=== PATIENT | male | born 1965 | race Caucasian/White ===

== ENCOUNTER 2020-09-14 10:28 | Emergency (ER) | payer OTHER, SELFPAY ==
[2020-09-14] VITALS (18 sets, daily range): BP systolic 132–152; BP diastolic 86–111; PULSE 69–91; RESP 11–28; TEMP 36.9; O2SAT 95–100
--- NOTE | ~2020-09-14 | XR_ITS ---
XR elbow LT min 3V DATE: 09/14/2020 11:34 INDICATION: Left elbow pain, swelling, erythema TECHNIQUE: 4 views COMPARISON: None FINDINGS: There is spurring of the coronoid process and olecranon process of the proximal ulna, consi stent with osteoarthritic change. No fracture or dislocation, periosteal reaction or bone destruction or joint effusion is evident. IMPRESSION: Spurring of the coronoid and olecranon processes of the proximal ulna consistent with ost eoarthritis Reviewed, dictated and finalized at location B. GENERATOR IMPRESSION: Spurring of the coronoid and olecranon processes of the proximal ul na consistent with osteoarthritis
--- NOTE | 2020-09-14 11:14 | ED.EXTPRO ---
HPI - Extremity Problem General Chief complaint: Extremity Problem,Nontraumatic Stated complaint: elbow pain & swelling Time Seen by Provider: 09/14/20 10:51 Source: patient Mode of arrival: ambulatory Limitations: no limitations History of Present Illness HPI Narrative: This is a 55-year-old male that presents the emergency department for left elbow pain x4 days. Associated with swelling and redness. Was seen by his primary today and sent here for further evaluation. Denies fever. Related Data Allergies Allergy/AdvReac Type Severity Reaction Status Date / Time No Known Allergies Allergy Verified 09/14/20 10:53 Review of Systems Review of Systems: Narrative: CONSTITUTIONAL: Denies fever SKIN: Denies rash MUSCULOSKELETAL: Reports joint pain, and myalgia. NEUROLOGIC: Denies numbness All systems reviewed & are unremarkable except as noted in HPI and below PMFSH Past Medical History Medical History (Updated 09/14/20 @ 13:41 by Hali Meek PA-C) No active medical problems Family History Family History Mother Diabetes mellitus Father Family history of congestive heart failure Other Family history of blood dyscrasia Family history of malignant neoplasm Hypertension Social History Social History Smoking status: Never smoker Alcohol intake: current Exam Narrative: Exam Narrative: GENERAL: Well-appearing, obese, and in no acute distress. HEAD: Normocephalic, atraumatic. EYES: EOMI. CHEST: Clear to auscultation. No respiratory distress. No wheezes rales or rhonchi HEART: Regular rate and rhythm. No murmur heard. Normal peripheral pulses. EXTREMITIES: Normal range of motion, except mildly decreased active ROM in the left elbow due to pain. Mild to moderate edema to the left elbow with moderate surrounding redness. Normal radial pulses SKIN: Warm, dry, no rash. NEURO: No focal deficits. Alert and oriented x3. PSYCH: Normal mood and affect Course Consultations Consultation #1: Spoke with Dr. Llanos about patient work-up. Patient will be given dose of antibiotics IV in the ED and then sent home on oral antibiotics. Date: 09/14/20 Time: 13:40 Vital Signs Vital signs: Vital Signs Temperature 98.5 F 09/14/20 10:48 Pulse Rate 91 09/14/20 10:48 Respiratory Rate 20 09/14/20 10:48 Blood Pressure 135/86 09/14/20 10:48 Pulse Oximetry 97 09/14/20 10:48 Temperature 98.5 F 09/14/20 10:48 Pulse Rate 73 09/14/20 13:31 Respiratory Rate 20 09/14/20 13:31 Blood Pressure 144/89 H 09/14/20 13:31 Pulse Oximetry 98 09/14/20 13:31 MDM - Extremity (Nontraumatic) MDM Narrative Medical decision making narrative: Patient presents to the emergency department for left elbow pain and swelling x4 days. He is afebrile and nontoxic-appearing. Does have good range of motion in the elbow. Mild to moderate redness and swelling noted about the posterior elbow. CBC is without leukocytosis. ESR and CRP are elevated. Uric acid is normal. Left elbow x-ray shows osteoarthritis, no acute bony abnormalities or joint effusion. Spoke with Dr. Llanos about patient work-up. Patient will be given dose of antibiotics IV in the ED and then sent home on oral antibiotics. He will follow-up in clinic. Patient was given warnings to return to the ER Lab Data Attestation: I reviewed the patient's lab results. Result diagrams: 09/14/20 11:22 09/14/20 11:22 Labs: Lab Results 09/14/20 09/14/20 Range/Units 11:22 11:22 WBC 7.1 (4.5-10.0) K/mm3 RBC 4.30 L (4.6-6.20) M/mm3 Hgb 13.1 L (14.0-18.0) g/dL Hct 39.3 L (42.0-52.0) % MCV 91.4 (80-100) fl MCH 30.5 (26-34) pg MCHC 33.3 (32-36) g/dl RDW 14.5 (11.5-14.5) % Plt Count 175 (150-375) k/mm3 MPV 10.8 H (7.4-10.4) fl Immature Gran % (Auto) 0.3 (0-0.5) % Neut % (Auto) 69.0 (45.5
[2020-09-14 11:29] LABS: Basophils Percent Auto 0.4 % (0.2-1.2); Eosinophils Absolute Auto 0.1 K/mm3 (0-0.3); Eosinophils Percent Auto 0.8 % (0-4.4); Hematocrit 39.3 % (42.0-52.0); Hemoglobin 13.1 g/dL (14.0-18.0); Immature Granulocyte Absolute 0.02 K/mm3 (0.00-0.031); Immature Granulocyte Percent A 0.3 % (0-0.5); Lymphocytes Absolute Auto 1.43 K/mm3 (0.9-3.2); Mean Corpuscular HGB Conc 33.3 g/dl (32-36); Mean Corpuscular Hemoglobin 30.5 pg (26-34); Mean Corpuscular Volume 91.4 fl (80-100); Mean Platelet Volume 10.8 fl (7.4-10.4); Monocytes Absolute Auto 0.7 K/mm3 (0.1-0.6); Monocytes Percent Auto 9.5 % (2.6-8.5); Neutrophils Absolute Auto 4.9 K/mm3 (1.3-6.7); Platelet Count Result 175 k/mm3 (150-375); Red Cell Distribution Width 14.5 % (11.5-14.5); White Blood Count 7.1 K/mm3 (4.5-10.0)
[2020-09-14 11:50] LABS: Anion Gap 5 mmol/L (8-16); Blood Urea Nitrogen 16 mg/dL (9-20); CRP 6.9 mg/dL (<1.0); Calcium 8.7 mg/dL (8.4-10.2); Carbon Dioxide 30 mmol/L (22-30); Chloride 104 mmol/L (98-107); Estimated CRCL calculation 97 ml/min; Estimated Glomerular Filt Rate > 60; Glucose 104 mg/dL (75-110); Potassium 4.2 mmol/L (3.4-5.0); Sodium 139 mmol/L (137-145); Uric Acid 7.2 mg/dL (3.5-8.5)
[2020-09-14 12:08] LABS: Erythrocyte Sedimentation Rate 33 mm/hr (0-20)
--- NOTE | 2020-09-20 19:26 | PC.NURSE ---
LATE ENTRY This note is being entered to document information to the patient's record. The following information was omitted on [09/14/2020], Ceftriaxone stopped at 1433 by [RT].
== END 2020-09-14 14:22 | disposition home or self-care (01) ==
PROVIDERS: Physician Assistant; Emergency Provider Emergency Medicine; PCP Family Medicine
DX: M71.122 Other infective bursitis, left elbow (principal)
CPT/HCPCS: 36415; 73080; 80048; 84550; 85025; 85652; 86140; 96365; 99284; J0696

== ENCOUNTER → 2022-08-26 12:40 | Outpatient (CLI) | payer OTHER, SELFPAY ==
--- NOTE | ~2022-08-26 | XR_ITS ---
XR ankle RT min 3V DATE: 08/26/2022 13:07 INDICATION: Medial pain TECHNIQUE: 4 views COMPARISON: None FINDINGS: There is osteoarthritis at the tibiotalar and talocalcaneal joints. No recent fracture or d islocation of the ankle or disruption of the ankle mortise. No periosteal reaction or bone destructio n. IMPRESSION: Osteoarthritis Reviewed, dictated and finalized at location A. ENT SERVICES DIRECTOR IMPRESSION: Osteoarthritis
== END ==
PROVIDERS: PCP Family Medicine; Visit Provider Family Medicine
DX: M19.071 Primary osteoarthritis, right ankle and foot (principal)
CPT/HCPCS: 73610

== ENCOUNTER → 2023-02-24 16:31 | Outpatient (CLI) | payer OTHER, SELFPAY ==
--- NOTE | ~2023-02-24 | XR_ITS ---
Left Hand Technique: PA and lateral views were obtained. Clinical History: Pain Findings: No acute fracture or dislocation is seen. Osseous alignment is anatomic. Joint spaces are p reserved. Soft tissues are unremarkable. Impression: Unremarkable left hand. Reviewed, dictated and finalized at location M. Impression: Unremarkable left hand.
--- NOTE | ~2023-02-24 | XR_ITS ---
EXAM: XR elbow LT min 3V DATE: 02/24/2023 17:15 HISTORY: M25.522 - Pain in left elbow . COMPARISON: 09/14/2020. FINDINGS: Normal mineralization. No fracture or dislocation. No lytic or blastic lesion. Moderate el bow osteoarthritis. No erosion or periosteal change. Slight displacement of the anterior fat pad and minimal visualization of the posterior fat pad likely indicating small volume joint fluid. Soft tissu e swelling over the olecranon. IMPRESSION: Moderate elbow osteoarthritis. Small elbow joint effusion. Olecranon bursitis. Reviewed, dictated and finalized at location K. IMPRESSION: Moderate elbow osteoarthritis. Small elbow joint effusion. Olecrano n bursitis.
--- NOTE | ~2023-02-24 | XR_ITS ---
Right Hand Technique: PA, oblique, and lateral views were obtained. Clinical History: Pain Findings: No acute fracture or dislocation is seen. Osseous alignment is anatomic. Joint spaces are p reserved. Soft tissues are unremarkable. Impression: Unremarkable right hand. Reviewed, dictated and finalized at location M. Impression: Unremarkable right hand.
== END ==
PROVIDERS: PCP Nurse Practitioner Family; Visit Provider Nurse Practitioner Family
DX: M79.644 Pain in right finger(s) (principal); M19.022 Primary osteoarthritis, left elbow
CPT/HCPCS: 73080; 73120; 73130

== ENCOUNTER 2023-07-17 14:29 | Outpatient (CLI) | payer OTHER, SELFPAY ==
[2023-07-17 18:32] LABS: Basophils Percent Auto 0.6 % (0.2-1.2); Eosinophils Absolute Auto 0.1 K/mm3 (0-0.3); Eosinophils Percent Auto 1.1 % (0-4.4); Hematocrit 43.5 % (42.0-52.0); Hemoglobin 14.4 g/dL (14.0-18.0); Immature Granulocyte Absolute 0.01 K/mm3 (0.00-0.031); Immature Granulocyte Percent A 0.2 % (0-0.5); Lymphocytes Absolute Auto 1.48 K/mm3 (0.9-3.2); Mean Corpuscular HGB Conc 33.1 g/dl (32-36); Mean Corpuscular Hemoglobin 30.1 pg (26-34); Mean Corpuscular Volume 90.8 fl (80-100); Monocytes Absolute Auto 0.5 K/mm3 (0.1-0.6); Monocytes Percent Auto 7.9 % (2.6-8.5); Neutrophils Absolute Auto 4.1 K/mm3 (1.3-6.7); Neutrophils Percent Auto 66.2 % (45.5-73.1); Platelet Count Result 195 k/mm3 (150-375); Red Blood Count 4.79 M/mm3 (4.6-6.20); Red Cell Distribution Width 14.5 % (11.5-14.5); White Blood Count 6.2 K/mm3 (4.5-10.0)
[2023-07-17 18:58] LABS: Alanine Aminotransferase 33 U/L (6-50); Albumin Level 4.6 g/dL (3.5-5.1); Alkaline Phosphatase 66 U/L (38-126); Anion Gap 11 mmol/L (8-16); Aspartate Amino Transferase 39 U/L (17-59); Bilirubin,Total 0.7 mg/dL (0.2-1.3); Blood Urea Nitrogen 17 mg/dL (9-20); Calcium 9.4 mg/dL (8.4-10.2); Carbon Dioxide 27 mmol/L (22-30); Chloride 104 mmol/L (98-107); Estimated Glomerular Filt Rate > 60; Glucose 135 mg/dL (65-110); Potassium 3.9 mmol/L (3.4-5.0); Sodium 142 mmol/L (137-145)
[2023-07-17 19:19] LABS: Hemoglobin A1C 5.8 % (<5.7)
[2023-07-21 09:58] LABS: Vitamin D 1,25 (OH)2 Total 35 pg/mL (18-72); Vitamin D2 1,25 (OH)2 <8 pg/mL; Vitamin D3 1,25 (OH)2 35 pg/mL
[2023-07-21 22:06] LABS: PSA, Free 0.18 ng/mL; PSA, Total 0.5 ng/mL (<=4.0)
== END 2023-07-17 14:30 | disposition home or self-care (01) ==
LOC: ANHGOSHLAB 14:30
PROVIDERS: PCP Nurse Practitioner Family; Visit Provider Nurse Practitioner Family
DX: Z00.00 Encounter for general adult medical examination without abnormal findings (principal); R20.0 Anesthesia of skin; R20.2 Paresthesia of skin; E55.9 Vitamin D deficiency, unspecified; Z12.5 Encounter for screening for malignant neoplasm of prostate
CPT/HCPCS: 36415; 80053; 82607; 82652; 83036; 84153; 84154; 84443; 85025

== ENCOUNTER → 2023-07-17 15:53 | Outpatient (CLI) | payer OTHER, SELFPAY ==
--- NOTE | ~2023-07-17 | XR_ITS ---
EXAMINATION: XR hand RT min 3V DATE: 07/17/2023 16:16 INDICATION: Anesthesia of skin. TECHNIQUE: 3 views of right hand were obtained. COMPARISON: Radiographs 02/24/2023 FINDINGS: Bone alignment is normal. No fracture. There is mild osteoarthritis of first carpometacarpa l joint. There is degenerative cystic change in proximal lunate. There is mild osteoarthritis of seco nd through fifth metacarpophalangeal joints and all of the interphalangeal joints. There is a small l oose body in the radiocarpal compartment dorsally. IMPRESSION: 1. Polyarticular osteoarthritis. Reviewed, dictated and finalized at location E. ING ATTENDANT
--- NOTE | ~2023-07-17 | XR_ITS ---
EXAMINATION: XR_CERV2-3V_CR DATE: 07/17/2023 16:16 INDICATION: Anesthesia of skin. TECHNIQUE: 5 views of cervical spine were obtained. COMPARISON: cervical spine radiographs 06/22/2017 FINDINGS: There is 9 degrees levocurvature of cervicothoracic spine. There is anterior fusion from C2 to C6 with interbody devices at C3-C4 and C4-C5. There is fusion of the spinous processes at C2-C3 a nd C5-C6. There is moderately decreased disc height at C6-C7. There is multilevel mild facet joint hy pertrophy. There is mild central canal stenosis at C3-C4, C5-C6, and C6-C7. No prevertebral soft tiss ue swelling. IMPRESSION: 1. Moderate cervical spondylosis. 2. Anterior fusion from C2 to C6. Reviewed, dictated and finalized at location E. ER V GROOVE
== END ==
PROVIDERS: PCP Nurse Practitioner Family; Visit Provider Nurse Practitioner Family
DX: R20.0 Anesthesia of skin (principal); R20.2 Paresthesia of skin; M47.892 Other spondylosis, cervical region; Z98.1 Arthrodesis status; M19.041 Primary osteoarthritis, right hand
CPT/HCPCS: 72040; 73130

== ENCOUNTER 2023-12-16 18:51 | Emergency (ER) | payer OTHER, SELFPAY ==
[2023-12-16] VITALS (7 sets, daily range): BP systolic 144–170; BP diastolic 90–103; PULSE 78–83; RESP 18; TEMP 36.2; O2SAT 94–100
--- NOTE | ~2023-12-16 | XR_ITS ---
XR chest 1V portable 12/16/2023 22:29 Indication: Left shoulder pain Procedure: AP portable chest Comparison: No prior studies for comparison. Findings: Cardiomegaly. No focal air space disease, pulmonary edema, pleural effusion or suspected pn eumothorax. Impression: 1: No acute cardiopulmonary disease. Reviewed, dictated and finalized at location A. Impression: 1: No acute cardiopulmonary disease.
--- NOTE | ~2023-12-16 | CT_ITS ---
CT ANGIOGRAM NECK AND HEAD History: Left arm weakness. Technique: Axial noncontrast imaging of the brain was performed. Serial spiral axial images through t he head and neck were than obtained during arterial phase IV injection of 100 cc of Omnipaque 350. 3- D postprocessing and MIP images were then reconstructed on the remote workstation. Dose reduction gisella hnique was used on this scan by utilizing automated exposure control and iterative reconstruction gisella hnique. The dose-length product (DLP) was 1974.62 mGy-cm. CTA neck findings: Bilateral vertebral arteries are patent. Bilateral common carotid, internal carot id, and external carotid arteries are patent. No large vessel occlusion. No stenosis or aneurysm. Int ernal carotid arteries are somewhat tortuous. The proximal right internal carotid artery demonstrates 0% stenosis relative to the normal distal artery lumen diameter. The proximal left internal carotid artery demonstrates 0% stenosis relative to the normal distal artery lumen diameter. CTA head findings: Distal vertebral arteries, basilar artery, and posterior cerebral arteries are pat ent. Distal internal carotid arteries, middle cerebral arteries, and anterior cerebral arteries are p atent. There is probable aplasia versus marked hypoplasia of the A1 segment of the right anterior cer ebral artery, typically considered normal variant. Probable infundibulum at the anterior communicatin g artery on the left side rather than aneurysm. No large vessel occlusion. No stenosis. Axial noncontrast imaging of the brain is unremarkable. No acute infarct, intracranial hemorrhage or mass lesion identified. Greatest dimension preserved. No mass effect or midline shift. Ventricles and subarachnoid spaces are unremarkable. Paranasal sinuses and mastoid air cells are clear. Impression: No significant abnormality identified. Probable infundibulum at the left anterior communicating arter y rather than aneurysm. Reviewed, dictated and finalized at location . Impression: No significant abnormality identified. Probable infundibulum at the left anteri or communicating artery rather than aneurysm.
--- NOTE | 2023-12-16 22:16 | ECG_ITS ---
SEE SCANNED COPY FOR CONFIRMED REPORT MTDD
[2023-12-16 23:01] LABS: Basophils Percent Auto 0.5 % (0.2-1.2); Eosinophils Absolute Auto 0.1 K/mm3 (0-0.3); Eosinophils Percent Auto 0.7 % (0-4.4); Hematocrit 41.7 % (42.0-52.0); Hemoglobin 13.8 g/dL (14.0-18.0); Immature Granulocyte Absolute 0.01 K/mm3 (0.00-0.031); Immature Granulocyte Percent A 0.1 % (0-0.5); Lymphocytes Absolute Auto 2.04 K/mm3 (0.9-3.2); Lymphocytes Percent Auto 26.7 % (18.3-44.2); Mean Corpuscular HGB Conc 33.1 g/dl (32-36); Mean Corpuscular Hemoglobin 30.1 pg (26-34); Mean Platelet Volume 10.7 fl (7.4-10.4); Monocytes Absolute Auto 0.7 K/mm3 (0.1-0.6); Monocytes Percent Auto 9.2 % (2.6-8.5); Neutrophils Absolute Auto 4.8 K/mm3 (1.3-6.7); Neutrophils Percent Auto 62.8 % (45.5-73.1); Platelet Count Result 205 k/mm3 (150-375); Red Blood Count 4.58 M/mm3 (4.6-6.20); Red Cell Distribution Width 14.4 % (11.5-14.5); White Blood Count 7.6 K/mm3 (4.5-10.0)
[2023-12-16 23:08] LABS: Lactic Acid Reflex 0.9 mmol/L (0.7-2.0)
[2023-12-16 23:10] LABS: Appearance Urine Clear (Clear); Bilirubin Urine Negative (Negative); Blood Urine Negative (Negative); Color Urine Yellow (Yellow); Glucose Urine UA Negative (Negative); Ketones Urine Negative (Negative); Leukocyte Esterase Ur Negative LEU/UL (Negative); Nitrate Urine Negative (Negative); Protein Urine Negative (Negative); Urobilinogen Urine 0.2 mg/dL (<2.0); pH Urine 5.5 (5.0-9.0)
[2023-12-16 23:13] LABS: Add Urine Microscopic? NO
[2023-12-16 23:14] LABS: Alanine Aminotransferase 33 U/L (6-50); Albumin Level 4.6 g/dL (3.5-5.1); Alkaline Phosphatase 62 U/L (38-126); Anion Gap 7 mmol/L (4-12); Aspartate Amino Transferase 28 U/L (17-59); Bilirubin,Total 0.6 mg/dL (0.2-1.3); Blood Urea Nitrogen 22 mg/dL (9-20); Calcium 9.3 mg/dL (8.4-10.2); Carbon Dioxide 25 mmol/L (22-30); Chloride 106 mmol/L (98-107); Estimated CRCL calculation 92 ml/min; Estimated Glomerular Filt Rate > 60; Glucose 101 mg/dL (65-110); Sodium 138 mmol/L (137-145)
[2023-12-16 23:21] LABS: Troponin I < 0.012 ng/mL (0.000-0.034)
[2023-12-17] VITALS (8 sets, daily range): BP systolic 144–166; BP diastolic 79–102; PULSE 68–72; RESP 14–17; O2SAT 94–98
[2023-12-17 02:15] LABS: Troponin I < 0.012 ng/mL (0.000-0.034)
--- NOTE | 2023-12-17 03:36 | ED.GENADULT ---
HPI - General Adult General Chief complaint: Extremity Injury, Upper Stated complaint: left arm pain Time Seen by Provider: 12/16/23 22:06 History of Present Illness HPI narrative: patient is a 58-year-old gentleman presents emergency department with chief complaint of left arm pain shooting from the elbow down to the hand patient states he has a numbness sensation that goes from the ulnar aspect of the arm to the 4th and 5th digit patient states that he has prior history of cervical surgery patient also reports had some tingling his right upper arm for some time. The patient reports he was seen in urgent care and sent to the emergency department to evaluate for possible stroke the patient is outside of the window for thrombolytics standpoint Related Data Allergies Allergy/AdvReac Type Severity Reaction Status Date / Time No Known Allergies Allergy Verified 02/24/23 15:44 Review of Systems Review of Systems: A 10 system review of systems was completed on the patient and is negative except for what is stated in the HPI. Nursing and ancillary documentation was reviewed. [facility] Past Medical History Medical History Osteoarthritis Pain, joint, ankle and foot Surgical History Surgical History History of fusion of cervical spine (~2009) History of hand surgery (~02/2016) Left hand deep laceration repair History of right inguinal hernia repair (~08/2016) Family History Family History Mother Diabetes mellitus Father Family history of congestive heart failure Other Family history of blood dyscrasia Family history of malignant neoplasm Hypertension Social History Social History Smoking status: Never smoker Alcohol intake: current Substance use: never Substance use type: does not use Lack of Transportation: No Lack of Food: Never True Current Housing: I Have Housing Difficulty Paying Gas/Electric Bills: No Difficulty Paying for Meds: No Currently Unemployed: No Education: High School Diploma/GED Difficulty w/ Childcare or Family Care: No Gender identity (if verbalized by the patient): Male Spiritual care concerns: No Exam Narrative: GENERAL: Well-appearing, well-nourished, and in no acute distress. HEAD: Normocephalic, atraumatic. EYES: PERRLA and EOMI. ENT: Nares clear, no rhinorrhea or epistaxis. Mucous membranes moist. NECK: Supple. CHEST: Clear to auscultation. No respiratory distress. HEART: Regular rate and rhythm. No murmur heard. Normal peripheral pulses. ABDOMEN: Soft, nontender, nondistended, normal active bowel sounds. EXTREMITIES: Normal range of motion decreased sensation 4th 5th digit of the left hand. Patient has full range of motion there is tenderness left elbow. No edema. SKIN: Warm, dry, no rash. NEURO: No focal deficits. Alert and oriented x3. PSYCH: Normal mood and affect. Course Vital Signs Vital signs: Vital Signs Temperature 36.2 C L 12/16/23 18:56 Pulse Rate 83 12/16/23 18:56 Respiratory Rate 18 12/16/23 18:56 Blood Pressure 170/97 H 12/16/23 18:56 Pulse Oximetry 95 12/16/23 18:56 Temperature 36.2 C L 12/16/23 18:56 Pulse Rate 70 12/17/23 01:46 Respiratory Rate 16 12/17/23 01:46 Blood Pressure 165/102 H 12/17/23 01:46 Pulse Oximetry 98 12/17/23 01:46 Medical Decision Making MDM Narrative Medical decision making narrative: differential diagnosis includes CVA, cervical radiculopathy. 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
[2023-12-17] MEDS: dexAMETHasone SOD PHOS INJ 10 MG/ML 1 ML VIAL 8 MG IV PUSH (03:49)
== END 2023-12-17 04:06 | disposition home or self-care (01) ==
PROVIDERS: Emergency Provider Emergency Medicine; PCP Nurse Practitioner Family
DX: M54.12 Radiculopathy, cervical region (principal); M19.90 Unspecified osteoarthritis, unspecified site; Z98.1 Arthrodesis status
CPT/HCPCS: 36415; 70496; 70498; 71045; 80053; 81003; 83605; 83735; 84484; 85025; 93005; 96374; 99284; J1100; Q9967

== ENCOUNTER 2024-11-24 09:53 | Outpatient (CLI) | payer OTHER, SELFPAY ==
--- NOTE | ~2024-11-24 | US_ITS ---
EXAMINATION: US venous doppler LE RT DATE: 11/24/2024 10:39 INDICATION: Right lower limb pain TECHNIQUE: Grayscale ultrasound images without and with compression and Doppler ultrasound images of the right lower extremity veins were obtained. COMPARISON: None. FINDINGS: The visualized portions of right common femoral vein, profunda (deep) femoral vein, femoral vein, pop liteal vein, peroneal trunk, posterior tibial veins, peroneal veins, gastrocnemius vein and greater s aphenous vein outflow are patent. There is a 4.7 x 3.4 x 0.8 cm nonloculated appearing deep subcutane ous fluid collection extending along the superficial fascia of the likely proximal gastrocnemius musc le at the popliteal fossa. No internal vascular flow on color Doppler and without surrounding hyperem ia to suggest infection but which could be seen in reactive fluid versus hematoma related to muscle s train or potentially extravasated fluid from a ruptured Blankenship's cyst. IMPRESSION: 1. No deep venous thrombosis in the right lower limb. 2. Nonspecific 4.7 x 3.4 x 0.8 cm nonloculated fluid collection extending along the superficial muscu lar fascia of the likely proximal gastrocnemius muscle most likely relate to either a muscle strain o r ruptured Blankenship's cyst. Reviewed, dictated and finalized at location A. IMPRESSION: 1. No deep venous thrombosis in the right lower limb. 2. Nonspecific 4.7 x 3.4 x 0.8 cm nonloculated fluid collection extending along the superficial muscular fascia of the likely proximal gastrocnemius muscle mo st likely relate to either a muscle strain or ruptured Blankenship's cyst.
--- OUTSIDE RECORDS SUMMARY | 2024-11-24 10:33 | XMS_ITS | Clinical Summary ---
Author Organization [facility] Address [address] [place] [address] Care Team Providers Care Sound Printer Name Role Phone Unavailable Primary Care Provider Unavailabl e Source Comments [facility],non-owned Affiliates and Associated Physician Practices is amultiple site organization consisting of ambulatory clinics and hospital sitesin [place], [place], [place] and [place]. This disclosure is being madepursuant to the Care Everywhere program and may not contain all information available regarding this patient. Last updated 18.[facility] Allergies No known active allergies Medications * Be aware that medications may not be up to date on this document. Alwaysverify current medications with the patient. Medication Sig Dispensed Refills Start Date End Date Status meloxicam (Mobic) 15 MG tablet 12/14/2022 Active Aspirin-Acetaminophen -Caffeine (EXCEDRIN EXTRA STRENGTH PO) Excedrin Extra Strength Active Active Problems Problem Noted Date Diagnosed Date Arthritis 12/24/2022 Osteoarthritis of left ankle 11/12/2022 Swelling of ankle joint 07/28/2018 Sprain of deltoid ligament of ankle 07/28/2018 Foot pain 07/28/2018 Ankle pain 07/28/2018 Immunizations Name Administration Dates Next Due TD (ADULT), 5 LF TETANUS TOXOID, ADSORBED, PF Social History Tobacco Use Types Packs/Day Years Used Date Smoking Tobacco: Never Passive Smoke Exposure: Never Smokeless Tobacco: Never Tobacco Cessation:Counseling Given: Not Answered Alcohol Use Standard Drinks/Week Comments Yes 0 (1 standard drink = 0.6 oz pur e alcohol) rare PHQ-2 Answer Date Recorded Patient Health Questionnaire-2 Score 0 07/14/2024 Sex and Gender Information Value Date Recorded Sex Assigned at Not on file Gender Identity Not on file Sexual Orientation Not on file Last Filed Vital Signs Vital Sign Reading Time Taken Comments Blood Pressure 146/95 07/14/2024 3:06 PM GEOSCIENCE PROFESSOR Pulse 96 07/14/2024 3:00 PM GEOSCIENCE PROFESSOR Temperature 36.7 C (98 F) 07/14/2024 3:00 PM GEOSCIENCE PROFESSOR Respiratory Rate 18 07/14/2024 3:00 PM GEOSCIENCE PROFESSOR Oxygen Saturation 98% 07/14/2024 3:00 PM GEOSCIENCE PROFESSOR Inhaled Oxygen Concentration - - Weight 111.1 kg (245 lb) 12/24/2022 2:35 PM CDT Height 180.3 cm (5' 11 ) 12/24/2022 2:35 PM CDT Body Mass Index 34.17 12/24/2022 2:35 PM CDT Plan of Treatment Health Maintenance Due Date Last Done Comments COLOGUARD (AGES 45-75) - COL ON CA SCREENING 1965 COLON MONITORING 1965 COLONOSCOPY - COLON CA SCREENING 1965 CT COLONOGRAPHY - COLON CA SCREENING 1965 Colorectal Cancer Screening 1965 FIT - COLON CA SCREENING 1965 FLEX SIG - COLON CA SCREENING 1965 LIPID TESTING 1965 HIV SCREENING 02/15/1980 HEPATITIS C SCREENING 02/10/1983 HEPATITIS B VACCINE (1 of 3 - 19+ 3-dose series) 02/15/1984 PNEUMOCOCCAL VACCINE 50+ (1 of 1 - PCV) 2015 ZOSTER VACCINE (1 of 2) 2015 COVID-19 VACCINE (2023-2 5 season) 2024 08/28/2021, 12/23/2020, 12/02/2020 INFLUENZA VACCINE (#1) 2024 DEPRESSION SCREENING 09/07/2024 07/14/2024 DTAP/TDAP/TD VACCINES (2 - T d or Tdap) 03/21/2031 03/21/2021 HIB VACCINE Aged Out No longer eligi ble based on patient's age to complete this topic HPV VACCINE Aged Out No longer eligi ble based on patient's age to complete this topic MENINGOCOCCAL (Group B) VACCINE SHARED DECISION-MAKING Aged Out No longer eligible based on patient's age to complete this topic MENINGOCOCCAL GROUPS A/C/Y/W VACCINE Aged Out No longer eligible b ased on patient's age to complete this topic
--- OUTSIDE RECORDS SUMMARY | 2024-11-24 10:33 | XMS_ITS | Data Portability ---
Author Organization [place] [facility] Admin Address [address] [place] [address] Assessment Encounter Date Assessment Date Assessment LastModified by Organization Details LastModified Time 07/28/2018 07/28/2018 x-rays were reviewed and I discussed my findings with the patient today. X-rays reveal no obvious acute bony abnormalities. He does have significant degenerative changes noted to the right ankle. His exam is most consistent with a sprain to the deltoid ligament and an exacerbation to underlying arthritis to his right ankle. He may also be experiencing peroneal tendinitis. Given the amount of soft tissue swelling noted on exam today, he will be placed into a bulky Walker splint for immobilization. He will remain nonweightbearin g. The patient would like to obtain a knee scooter, a prescription was provided today. He declines crutches. He was instructed he cannot drive with the splint on, patient verbalizes understanding. He will have someone pick him up from the clinic today. Conservative treatment options were discussed to include resting, icing and elevating his right leg and ankle. He can continue oral Aleve and/or Tylenol as needed for pain. I would like the patient to follow up with the foot and ankle team in 7-10 days for clinical recheck. Patient was instructed to report to the clinic sooner should symptoms worsen. Opportunity for questions and answers was provided. The patient in agreement with today's plan. [email or web address] Not available 07/28/2018 14:24:19 Plan of Treatment Reminders Order Date Submit Date Provider Last Modified By Organization Details Last Modified Time Details Appointments None recorded. Lab None recorded. Referral physical therapist referral 2017 018 [email or web address] Not available 8 11:50:03 Procedures None recorded. Surgeries None recorded. Imaging XR, foot 2017 018 aidee nicholson [facility] [[id number]], [address], [place], [address], 8 14:07:17 XR, ankle 2017 018 aidee nicholosn [facility] [497], [address], [place], [address], 8 14:07:17 Medication Orders None recorded. Patient TargetsNo targets recorded. Patient Instructions Encounter Date Encounter Id Patient Instructions Last Modified By Organization Details Last Modified Time 08/04/2018 [id number] ankle sprain: care instructions [email or web address] Not available 08/05/2018 13:14:29 Reason for Referral Physical Therapist Referral for Ankle pain Referring Physician: Misael Zamudio, Orthopedic Surgery, Encounter Date: 08/04/2018 Results Created Date Observation Date Name Description Value Unit Range Abnormal Flag Note LastModifiedBy Organization Detail LastModifiedTime 07/28/20 18 07/28/2018 XR, ankle [facility] eUID=[id number] .2.608 [id number] 8 INTERFACE [facility] [497] [address], [place], [address], 07/28/2018 12:56:24 07/28/20 18 07/28/2018 XR, foot [facility] eUID=1 .[id number] .2.608 [id number] 8 INTERFACE [facility] [497] [address] [place], [address], 07/28/2018 13:26:07 Result Notes None recorded. Problems Name Problem SNOMED Code Status Onset Date Resolution Date Notes Provider Name and Address Organization Details Recorded Time Sprain of deltoid ligament of ankle 52422241 Active MARÍA Ness - [facility] 8 14:24:35 Foot pain 33624810 Active 018 Katlyn lawson, [place] - [facility] 8 14:24:36 Ankle pain 312008212 Active 018 Katlyn lawson, [place] - [facility] 8 14:24:37 Swelling of ankle joint 048279908 Active 018 Katlyn Campbell null, [place] - [facility] 8 14:24:47 Problem Notes None recorded. Procedures Surgical History Date Name Laterality Status Provider Name and Address Organization Details Recorded Time 8 W-Breg Ankle/Foot Brace completed Laura Ni [place] - [facility] 08/04/2018 11:39:23 8 W-Short Leg Splint (12436) completed Razia Montesmeghan [place] - [facility] 07/28/2018 13:41:24 7 Other completed Lillydain BurrellSimone [place] - [facility] 07/28/2018 12:41:37 6 Hand Surgery completed Lilly Nichols [place] - [facility] 07/28/2018 12:41:37 0 Spine completed Lilly Nichols [place] - [facility] 07/28/2018 12:41:37 Imaging Results Imaging Date Name Status LastModified by Organiz ation Details LastModified Time 07/28/2018 XR, ankle completed INTERFACE [facility] [4 97] [address], [place], [address], 07/28/2018 12:56:24 07/28/2018 XR, foot completed INTERFACE [facility] [4 97] [address], [place], [address], 07/28/2018 13:26:07 Procedure Notes None recorded. Medical Equipment None Reported. Allergies No known drug allergies Medications Name Sig Start Date Stop Date Status Note LastModified by Organization Details LastModified Time Excedrin Extra Strength active Not Available Not Available Not Available Vitals Date Recorded Body height Body mass index (BMI) Body weight Provider Name and Address Organization Details Last Updated DateTime 07/28/2018 182.88 cm 31.2 kg/m2 563465.25 g Lilly Burrellelin [place] - [facility] 07/28/2018 12:51:33 Date Recorded Body height Body mass index (BMI) Body weight Provider Name and Address Organization Details Last Updated DateTime 08/04/2018 182.88 cm 31.2 kg/m2 689588.25 g Misael Zamudio PA-C [address] [place], [address], [place] - [facility] 08/04/2018 15:27:27 Social History Question Answer Notes LastModified by Organizat ion Details LastModified Time Do You Have An Advance Directive? No Information not available 07/28/2018 What Is Your Level Of Alcohol Consumption? Occasional Information not available 07/28/2018 How Much Tobacco Do You Chew? None Information not available 07/28/2018 Are You Currently Employed? Yes Information not available 07/28/2018 Which Illicit Or Recreational Drugs Have You Used? None Information not available 07/28/2018 Who Is Your Employer? [employer] Information not available 07/28/2018 Which Of Your Hands Is Dominant? Right Information not available 07/28/2018 Live Alone Or With Others? With Others Information not available 07/28/2018 Marital Status Informatio n not available 07/28/2018 Do You Have A Medical Power Of [place]roudman? No Information not available 07/28/2018 What Was The Date Of Your Most Recent Tobacco Screening? 07/28/2018 Information not available 03/31/2019 How Much Tobacco Do You Smoke? No Information not available 07/28/2018 Sex: Unknown Functional Status None recorded. Mental Status None recorded. Family History Relationship Description Onset Age of this Age Resolved Age Notes LastModified by Organization Details LastModified Time Father Blood coagulation disorder [email or web address] Not available 2017 12:36:32 Father Osteoporosis [email or web address] Not availab le 07/28/2018 12:36:32 Father Rheumatoid arthritis [email or web address] Not available 2017 12:36:33 Mother Diabetes mellitus [email or web address] Not available 2017 12:36:58 Mother Heart disease [email or web address] Not available 2017 12:36:58 Mother History of carcinoma [email or web address] Not available 2017 12:36:58 Mother Rheumatoid arthritis [email or web address] Not available 2017 12:36:58 Medical History Condition Response Heart Problems N HIV or AIDS N None N Osteoarthritis Y Leukemia N Irregular Heartbeat N Parkinson's Disease N MRSA N Migraines Y COPD N Lung Disease N Depression N Blood Clots N Previous Pain Management Treatment: Y Lupus/SLE N Bipolar N Sickle Cell Anemia N Anemia N Poor Circulation N Congestive Heart Failure N Stomach Ulcers Y Diabetes N Anxiety Disorder N Hepatitis/Liver Disease N Bleeding Disorder N Seizures/Epilepsy N Thyroid Problems/Goiter N Tuberculosis N Other: N Chest Pain/Angina N Cancer N Asthma N Chronic Back Pain N Sleep apnea N Numbness/Tingling N Stroke/TIA N GERD/Reflux N High Cholesterol N Pulmonary Embolis N GI Issues Specify: N Rheumatoid Arthritis N Fibromyalgia N Hypertension N Osteoporosis N Kidney Disease N Past Encounters Encounter ID Performer Location Encounter Start Date Encounter Closed Date Diagnosis/Indication Diagnosis SNOMED-CT Code Diagnosis ICD10 Code Diagnosis Note [id number] Katlyn FisherO-Lianet carlos [address] [place] [address] 07/28/2018 12:14:56 07/28/2018 14:07:16 Ankle pain 784047184 M25.571 Foot pain 45975560 M79.6 71 Sprain of deltoid ligament of ankle 47106223 S93.421A Swelling o f ankle joint 581222031 M25.885 [id number] Misael Zamudio PA-C [facility] [address] [place] [address] 08/04/2018 11:15:40 08/04/2018 11:47:41 Ankle pain 419747956 M25.571 Previous radiograph s reviewed from walk-in clinic. He has scarificat ion was cephalad to the syndesmosi s and chronic type degenerati ve changes throughout the ankle and hindfoot but I cannot appreciate anything acute. Working diagnosis ankle sprain superimpos ed on ankle hindfoot arthritis. Plan is for a walking boot. Medical necessity for protective weightbear ing. We'll start typical ankle rehabilita tion and see him back in 4 weeks for hopeful final check. Questions invited and answered to his satisfacti on. Sprain of ankle 67333975 S93.491A Health Concerns Section Related Observation LastModified by Organization Detai ls LastModified Time None Recorded Concern Status LastModified by Organization Details LastModified Time None Recorded Advance Directives Directive N: Payers Encounter Date Sequence Insurance Name Policy Number Policy Stoll Covered Member ID Stoll Member ID Guarantor Name 07/28/2018 1 *SELF PAY* Dayday Ly 08/04/2018 1 *SELF PAY* Dayday Ly Notes Date Note Type Note Provider Name and Address Organization Details Recorded Time 07/28/2018 text/html Mr. Ly is a 53 year old male who [facility] of right ankle pain. He states 1 week ago on 07/21/18 he was at a [employer] exhibit and jumped off of the ship. He denies any pain at that time. He states over the past week he has had on and off pain. He reports his current pain as a 6 out of 10. He describes pain as constant, stabbing and wakes him from his sleep. He states standing, lying and walking exacerbates his symptoms. Has complaints of swelling, bruising and numbness and tingling noted to the right foot and ankle. He has tried ice and Aleve with minimal pain relief. The patient has recently relocated to the [facility], [place]. 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 He is able to ambulate at this time without any assistive devices needed. He states he has had previous injuries to his right ankle. Katlyn lawson, [facility] 07/28/2018 14:27:45 08/04/2018 text/html 53-year-old male presents from access. Working diagnosis deltoid ligament sprain with questionable bone pathology prior radiographic workup. He was placed in Walker splint. Subjectively doing well. 2 weeks out from injury. Current pain level 3/10. Misael Zamudio PA-C [address], [place], [address], [facility] - [facility] 08/05/2018 13:29:39
== END 2024-11-24 09:54 | disposition home or self-care (01) ==
PROVIDERS: PCP Family Medicine; Visit Provider Podiatrist Foot & Ankle Surgery
DX: M79.661 Pain in right lower leg (principal)
CPT/HCPCS: 93971

== ENCOUNTER 2025-06-13 01:01 | Day surgery (SDC) | payer OTHER, SELFPAY ==
[2025-02-01 15:06] VITALS: BMI 31.1
[2025-06-05 09:55] VITALS: BMI 30.5
--- OUTSIDE RECORDS SUMMARY | 2025-06-13 01:04 | XMS_ITS | Clinical Summary ---
Author Organization [facility] [employer] Address [address] [place] [address] Care Team Providers Care Gas Derrick Operator Name Role Phone Unavailable Primary Care Provider Unavailabl e Source Comments [facility] [employer],non-owned Affiliates and Associated Physician Practices is amultiple site organization consisting of ambulatory clinics and hospital sitesin [place], [place], [place] and [place]. This disclosure is being madepursuant to the Care Everywhere program and may not contain all information available regarding this patient. Last updated 18.[employer] Allergies No known active allergies Medications * Be aware that medications may not be up to date on this document. Alwaysverify current medications with the patient. meloxicam (Mobic) 15 MG tablet 12/14/2022 Active Aspirin-Acetami nophen-Caffeine (EXCEDRIN EXTRA STRENGTH PO) Excedrin Extra Strength Active Active Problems Problem Noted Date Diagnosed Date Arthritis 12/24/2022 Osteoarthritis of left ankle 11/12/2022 Swelling of ankle joint 07/28/2018 Sprain of deltoid ligament of ankle 07/28/2018 Foot pain 07/28/2018 Ankle pain 07/28/2018 Immunizations Immunization Administration Dates Next Due TD (ADULT), 5 [...] Recorded Sex Assigned at Not on file Legal Sex Male 7:32 AM RN TELEPHONE TRIAGE Gender Identity Not on file Sexual Orientation Not on file Last Filed Vital Signs Vital Sign Reading Time Taken Comments Blood Pressure 146/95 07/14/2024 3:06 PM RN TELEPHONE TRIAGE Pulse 96 07/14/2024 3:00 PM RN TELEPHONE TRIAGE Temperature 36.7 C (98 F) 07/14/2024 3:00 PM RN TELEPHONE TRIAGE Respiratory Rate 18 07/14/2024 3:00 PM RN TELEPHONE TRIAGE Oxygen Saturation 98% 07/14/2024 3:00 PM RN TELEPHONE TRIAGE Inhaled Oxygen Concentration - - Weight 111.1 kg (245 lb) 12/24/2022 2:35 PM CDT Height 180.3 cm (5' 11) 12/24/2022 2:35 PM CDT Body Mass Index [...] HIV SCREENING 02/15/1980 HEPATITIS C SCREENING 02/10/1983 PNEUMOCOCCAL VACCINE 50+ (1 of 1 - PCV) 2015 ZOSTER VACCINE (1 of 2) 2015 DEPRESSION SCREENING 09/07/2024 07/14/2024 COVID-19 VACCINE ( - 2024-2 6 season) 2025 08/28/2021, 12/23/2020, 12/02/2020 INFLUENZA VACCINE (#1) 2025 DTAP/TDAP/TD VACCINES (2 - T d or Tdap) 03/21/2031 03/21/2021 Respiratory Syncytial Virus (RSV) Vaccine Pt: or over 60 yrs (1 - 1-dose 75+ series) 02/15/2040 HEPATITIS B VACCINE Aged Out No longe r eligible based on patient's age to complete this topic HIB VACCINE Aged Out No longer eligi [...] on patient's age [place] [address] [facility]
--- OUTSIDE RECORDS SUMMARY | 2025-06-13 01:04 | XMS_ITS | Clinical Summary ---
Author Organization [facility] Address [facility] [place] [address] Care Team Providers Care Business Analytics Intern Name Role Phone Claus Astudillo MD Primary Care Provider [phone] Allergies No known active allergies Medications meloxicam (MOBIC) 15 mg tablet Take 1 tablet (15 mg total) by mouth daily 5 Active meloxicam (MOBIC) 15 mg tabletIndicatio ns:Left foot pain Take 1 tablet (15 mg total) by mouth daily for 7 days 7 tablet 5 Active Additional Information Patient not taking.Reported on 02/27/2025 acetaminophen-a spirin-caffeine (EXCEDRIN MIGRAINE) 250-250-65 mg per tablet Excedrin Extra Strength Active Active Problems No known active problems Surgical History Surgery Date Site/Laterality Comments HAND SURGERY NECK SURGERY Family History Medical History Relation Name Comments Arthritis Father Family history of arthritis - (Added by TW Conv) Diabetes Father Family history of diabetes mellitus - (Added by TW Conv) Heart disease Father Family history of cardiac disorder - (Added by TW Conv) Hypertension Father Family history of hypertension - (Added by TW Conv) Kidney disease Father Family histor y of kidney disease - (Added by TW Conv) Arthritis Mother Family history of arthritis - (Added by TW Conv) Cancer Mother Family history of malignant neoplasm - (Added by TW Conv) Deep vein thrombosis Mother Family history of deep venous thrombosis - (Added by TW Conv) Diabetes Mother Family history of diabetes mellitus - (Added by TW Conv) Relation Name Status Comments Father Mother Social History Tobacco Use Types Packs/Day Years Used Date Smoking Tobacco: Never Tobacco Cessation:Counseling Given: Not Answered Sex and Gender Information Value Date Recorded Sex Assigned at Not on file 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 Gender Identity Not on file Sexual Orientation Not on file Obstetrics History Last Filed Vital Signs Vital Sign Reading Time Taken Comments Blood Pressure 147/82 02/27/2025 11:26 AM CDT Pulse 86 02/27/2025 11:26 AM CDT Temperature 36.9 C (98.5 F) 02/03/2025 9:50 AM CDT Respiratory Rate 20 02/03/2025 9:50 AM CDT Oxygen Saturation 98% 02/03/2025 9:50 AM CDT Inhaled Oxygen Concentration - - Weight 104.3 kg (230 lb) 02/27/2025 11:26 AM CDT Height 180.3 cm (5' 11) 02/27/2025 11:26 AM CDT Body Mass Index 32.08 02/27/2025 11:26 AM CDT Plan of Treatment Health Maintenance Due Date Last Done Comments Colon Cancer Screening-Colonoscopy 1965 Depression Screening 1965 Hepatitis C Screening 1965 Prostate Cancer Screening-PSA 1965 Hepatitis B Screening 1983 Regular Well Visit/Exam 18-64 1983 Zoster Vaccine (1 of 2) 2015 DTaP/Tdap/Td Vaccine (1 - Tdap) 03/22/2021 03/21/2021 Covid-19 Vaccine (4 - 2024-2 6 season) 2025 08/28/2021, 12/23/2020, 12/02/2020 Influenza Vaccine (#1) 2025 Pneumococcal vaccine <65 Aged Out No longer eligible based on patient's age to complete this topic Insurance [place] [address] [employer] [facility] Care Teams Business Analytics Intern Relationship Specialty Start Date End Date Claus Astudillo MD PCP - General Family Medicine 07/02/22
[2025-06-13 08:18] VITALS: BP 129/81; PULSE 96; RESP 18; TEMP 36.3; O2SAT 95; BMI 31.6
[2025-06-13] MEDS: LACTATED RINGERS 1,000 ML 150 ML IV CONT (08:46)
--- NOTE | 2025-06-13 09:06 | WPDANESEPPF ---
Anes - Initial Pre Proc Eval Procedure: Operation Date: 06/13/25 09:30 Proposed Procedures p Screening Colonoscopy - Terry Maldonado MD Date/Time: 06/13/25 09:06 Surgeon: Terry Maldonado MD Pre Op Diagnosis: screening Patient Data Age: 60 Gender: M Height: 1.83 m Weight: 105.7 kg Last Vital Signs Temp 36.3 C L 06/13/25 08:18 Pulse 96 06/13/25 08:18 Resp 18 06/13/25 08:18 BP 129/81 06/13/25 08:18 Pulse Ox 95 06/13/25 08:18 O2 Del Method Room Air 06/13/25 08:18 Allergies Allergy/AdvReac Type Severity Reaction Status Date / Time No Known Allergies Allergy Verified 06/13/25 08:25 Home Medications ?Medication ?Instructions ?Recorded ?Confirmed ?Type acetaminophen 325 mg tablet 325 mg PO Q6H PRN pain 01/16/25 02/01/25 History (Tylenol) bhuhwar-dulohvuqzofqd-pgdwlkay 250 1 tablet PO Q4-6H PRN pain 01/16/25 02/01/25 History mg-250 mg-65 mg tablet (Excedrin Migraine) naproxen sodium 220 mg capsule 220 mg PO BID PRN pain 01/16/25 02/01/25 History (Aleve) nirmatrelvir 300 mg (150 mg See Rx Instructions PO .COMPLEX 04/24/25 Rx x2)-ritonavir 100 mg tablet,dose #30 ea pack (Paxlovid) meloxicam 15 mg tablet 15 mg PO DAILY #90 tabs 05/19/25 06/13/25 Rx Patient hx anesthesia problems: none Family hx anesthesia problems: none Results Review: All pre-operative results and documents have been reviewed as part of the pre-operative evaluation. [facility] Past Medical History Medical History (Updated 06/13/25 @ 09:44 by Terry Maldonado MD) Anxiety Prediabetes (~07/2023) Pain, joint, ankle and foot Osteoarthritis Surgical History Surgical History History of fusion of cervical spine (~2009) History of hand surgery (~02/2016) Left hand deep laceration repair History of right inguinal hernia repair (~08/2016) Family History Family History Mother Diabetes mellitus Father Family history of congestive heart failure Other Family history of blood dyscrasia Family history of malignant neoplasm Hypertension Social History Social History Social History: Patient lives in [place] with his . 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 Smoking status: Never smoker Alcohol intake: current Substance use: never Substance use type: does not use Lack of Transportation: No Lack of Food: Never True Current Housing: I Have Housing Difficulty Paying Gas/Electric Bills: No Difficulty Paying for Meds: No Currently Unemployed: No Education: High School Diploma/GED Difficulty w/ Childcare or Family Care: No Living arrangements: with family Gender identity (if verbalized by the patient): Male Spiritual care concerns: No Anes - Eval Final PreProcedure Day of Procedure 06/13/25 09:06 Patient weight: obese Heart: regular rate and rhythm Lungs: clear to auscultation Airway: Mallampati scale class II Neurological: alert and oriented Last oral intake: >/= 8 hours ASA classification: II Emergent: no Anesthetic plan: proceed Anesthesia type and monitoring: general GIVS and standard monitoring Results Review: All pre-operative results and documents have been reviewed as part of the pre-operative evaluation. Informed Consent: The patient's anesthetic plan and its attendant risks and benefits were discussed with the patient/family/POA. Questions were solicited and answers provided to the satisfaction of the patient/family/POA.
--- NOTE | 2025-06-13 09:43 | PM.IMHP ---
H&P: HPI History of Present Illness Date/Time: 06/13/25 09:43 Chief Complaint: Screening colonoscopy Narrative: This is the patient's first colonoscopy after more than 17 years.. There are no GI symptoms and there is no family history of colorectal cancer. Review of Systems Review of Systems: All systems reviewed & are unremarkable except as noted in HPI and below PMFSH Past Medical History Medical History (Updated 06/13/25 @ 09:44 by Terry Maldonado MD) Anxiety Prediabetes (~07/2023) Pain, joint, ankle and foot Osteoarthritis Surgical History Surgical History History of fusion of cervical spine (~2009) History of hand surgery (~02/2016) Left hand deep laceration repair History of right inguinal hernia repair (~08/2016) Family History Family History Mother Diabetes mellitus Father Family history of congestive heart failure Other Family history of blood dyscrasia Family history of malignant neoplasm Hypertension Social History Social History Social History: Patient lives in [place] with his . 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 Smoking status: Never smoker Alcohol intake: current Substance use: never Substance use type: does not use Lack of Transportation: No Lack of Food: Never True Current Housing: I Have Housing Difficulty Paying Gas/Electric Bills: No Difficulty Paying for Meds: No Currently Unemployed: No Education: High School Diploma/GED Difficulty w/ Childcare or Family Care: No Living arrangements: with family Gender identity (if verbalized by the patient): Male Spiritual care concerns: No Meds Home Medications and Allergies Home Medications ?Medication ?Instructions ?Recorded ?Confirmed ?Type acetaminophen 325 mg tablet 325 mg PO Q6H PRN pain 01/16/25 02/01/25 History (Tylenol) mcltvab-hqmdwjxfauorr-nsbpuyed 250 1 tablet PO Q4-6H PRN pain 01/16/25 02/01/25 History mg-250 mg-65 mg tablet (Excedrin Migraine) naproxen sodium 220 mg capsule 220 mg PO BID PRN pain 01/16/25 02/01/25 History (Aleve) nirmatrelvir 300 mg (150 mg See Rx Instructions PO .COMPLEX 04/24/25 Rx x2)-ritonavir 100 mg tablet,dose #30 ea pack (Paxlovid) meloxicam 15 mg tablet 15 mg PO DAILY #90 tabs 05/19/25 06/13/25 Rx Allergies Allergy/AdvReac Type Severity Reaction Status Date / Time No Known Allergies Allergy Verified 06/13/25 08:25 Vital Signs Vital Signs - 24 hr 06/13/25 08:18 Temperature 97.4 F L Pulse Rate 96 Respiratory Rate 18 Blood Pressure 129/81 Pulse Oximetry 95 Oxygen Delivery Room Air Exam Const: General: cooperative and healthy appearing Resp: Effort & Inspection: normal respiratory effort and able to speak in complete sentences Auscultation: clear to auscultation bilaterally Cardio: Rate: regular rate Rhythm: regular rhythm GI: Inspection: normal to inspection GI Palp: No No hepatosplenomegaly present Auscultation: normal bowel sounds Rectal Exam: deferred Skin: General skin exam: normal color Psych: Appearance: grossly normal Mental Status: mental status grossly normal Assessment and Plan Assessment and plan (1) Encounter for screening colonoscopy: Code(s): Z12.11 - Encounter for screening for malignant neoplasm of colon Status: Acute Assessment and Plan: The patient is deemed a good candidate for the procedure. Consent signed. Will proceed.
[2025-06-13 10:06] VITALS: BP 123/67; PULSE 76; RESP 20; O2SAT 95
[2025-06-13 10:16] VITALS: BP 131/79; PULSE 74; RESP 18; O2SAT 96
[2025-06-13 10:26] VITALS: BP 142/99; PULSE 72; RESP 18; O2SAT 97
== END 2025-06-13 10:39 | disposition home or self-care (01) ==
PROVIDERS: PCP Family Medicine; Referring Provider Family Medicine; Visit Provider Internal Medicine Gastroenterology
PROC: 0DJD8ZZ Inspection of Lower Intestinal Tract, Via Natural or Artificial Opening Endoscopic (ICD-10-PCS; CPT 45378; principal; 2025-06-13 09:30)
DX: Z12.11 Encounter for screening for malignant neoplasm of colon (principal); K57.30 Diverticulosis of large intestine without perforation or abscess without bleeding; F41.9 Anxiety disorder, unspecified; R73.03 Prediabetes; M19.90 Unspecified osteoarthritis, unspecified site; Z79.82 Long term (current) use of aspirin; Z79.1 Long term (current) use of non-steroidal anti-inflammatories (NSAID); Z98.890 Other specified postprocedural states; Z98.1 Arthrodesis status; Z80.9 Family history of malignant neoplasm, unspecified; Z82.49 Family history of ischemic heart disease and other diseases of the circulatory system
CPT/HCPCS: 45378; J2003; J2704; J7120